=== PATIENT | female | born 1970 | race Caucasian/White ===

== ENCOUNTER → 2016-06-04 | Outpatient (CLI) | payer BC ==
[~2016-06-04] MED LIST: ASPI81TA84 PO; CITA-49 PO; MULT-139 PO; SIMV40TA73 PO; [UNRECOGNIZED DRUG - CODE] PO
== END ==
LOC: WC.BC 07:47
DX: Z12.31 Encounter for screening mammogram for malignant neoplasm of breast (principal)
CPT/HCPCS: 77063; G0202